=== PATIENT | male | born 1950 | race Caucasian/White ===

== ENCOUNTER → 2023-10-21 | Outpatient (CLI) | payer MEDICARE, OTHER, SELFPAY ==
--- OUTSIDE RECORDS SUMMARY | 2023-10-21 08:46 | XMS RPT_ITS | CCD ---
Author Name Unknown Address [address] [place] [address] Organization [facility] Care Team Providers Care Propagation Worker Name Role Phone DEVAN RINALDI Attending Unavailable DEVAN RINALDI Primary Care Unavailable DEVAN RINALDI Admitting Unavailable DEVAN RINALDI Admitting Unavailable DEVAN RINALDI Attending Unavailable DEVAN RINALDI Primary Care Unavailable Results Test Name Value Interpretation Reference Range Facil ity Encounters Encounter Date Encounter Type Care Provider Facility Start: 06-26-2023 End: 06-26-2023 ambulatory DEVAN RINALDI [facility] Start: 06-17-2023 ambulatory DEVAN RINALDI [facility] Procedures Date Procedure Procedure Detail Performing Clinician Start: 03-14-2022 PSA screening Summary Purpose Family History No Family History Records FoundNo Family History Records FoundNo Family History Records Found Advance Directives No Advanced Directives Records FoundNo Advanced Directives Records FoundNo Advanced Directives Records Found Additional Source Comments (unrecognized sect ion and content) No Status Records FoundNo Status Records FoundNo Status Records Found INFORMATION SOURCE (unrecogn ized section and content) DATE CREATED AUTHOR AUTHOR'S ORGANIZ ATION 03/15/2022 [facility] DATE CREATED AUTHOR AUTHOR'S ORGANIZ ATION 06/28/2023 [facility] FOR RECORDS PERTAINING TO PATIENTS WHO ARE OR HAVE BEEN ENROLLED IN A CHEMICAL DEPENDENCY/SUBSTANCEABUSE PROGRAM, SOME INFORMATION MAY BE OMITTED. This clinical summary was aggregated from multiple sources. Caution should be exercised in using it in the provision of clinical care. This summary normalizes information from multiple sources, and as a consequence, information in this document may materially change the coding, format and clinical context of patient data. In addition, data may be omitted in some cases. CLINICAL DECISIONS SHOULD BE BASED ON THE PRIMARY CLINICAL RECORDS. [facility]. provides no warranty or guarantee of the accuracy or completeness of information in this document.
[2023-10-21 10:11] LABS: Vitamin B12 1340 pg/mL (211-911)
[2023-10-21 10:36] LABS: AST(SGOT) 21 U/L (15-37); Alanine Aminotransfer ALT/SGPT 24 U/L (16-61); Albumin, Serum 3.9 g/dL (3.2-5.0); Alkaline Phosphatase 79 U/L (45-117); Anion Gap 1 (5-15); BUN 21 mg/dL (7-18); BUN/Creat Ratio 19.3 RATIO (10-20); Calcium,Total 9.2 mg/dL (8.5-10.1); Chloride 106 mmol/L (98-107); Cholesterol 181 mg/dL (200); Creatinine, Serum 1.09 mg/dL (0.70-1.30); EST Glomerular Filtration Rate 70 mL/min (>60); Est Glom Filt Rate - Afr Amer 85 mL/min (>60); Globulin 4.1 g/dL (2.2-4.2); Glucose 99 mg/dL (74-106); High Density Lipoprotein 29 mg/dL; Potassium 3.8 mmol/L (3.5-5.1); Sodium Level 136 mmol/L (136-145); Thyroid Stim Hormone (TSH) 6.17 uIU/mL (0.358-3.74); Triglycerides 139 mg/dL; Very Low Density Lipoprotein 28 mg/dL (5-40)
[2023-10-21 14:05] LABS: Free T3 2.6 pg/mL (2.18-3.98); T4 Free Direct 0.93 ng/dL (0.76-1.46)
== END | disposition home or self-care (01) ==
LOC: LAB 08:24
PROVIDERS: PCP Internal Medicine; Referring Provider Internal Medicine; Visit Provider Internal Medicine
DX: I10 Essential (primary) hypertension (principal); Z76.89 Persons encountering health services in other specified circumstances; Z13.220 Encounter for screening for lipoid disorders; E53.8 Deficiency of other specified B group vitamins; R06.09 Other forms of dyspnea; R94.31 Abnormal electrocardiogram [ECG] [EKG]; R53.83 Other fatigue; E55.9 Vitamin D deficiency, unspecified; R79.89 Other specified abnormal findings of blood chemistry
CPT/HCPCS: 36415; 80053; 80061; 82306; 82607; 84439; 84443; 84481

== ENCOUNTER → 2023-11-17 | Outpatient (CLI) | payer MEDICARE, OTHER, SELFPAY ==
--- NOTE | 2023-11-17 07:05 | ECHOD_ITS ---
Reason For Study: DONOHUE, UNCONTROLLED HTN Procedure This was a 2D Doppler, Color Flow transthoracic echocardiogram. Exam performed in department. Left Ventricle Normal LV size. Mild concentric left ventricular hypertrophy. The left ventricular ejection fraction is 55 %. Normal diastology for age. Right Ventricle Normal right ventricle. Atria The left and right atria are normal. Mitral Valve Mild (1+) mitral valve insufficiency. Tricuspid Valve Trivial tricuspid valve insufficiency. Normal pulmonary artery pressure. Aortic Valve Trisinus/trileaflet aortic valve. Pulmonic Valve The pulmonic valve is not well visualized. Trivial pulmonic valve insufficiency. Great Vessels Normal sized aortic root. Pericardium/Pleural No pericardial effusion. MMode/2D Measurements & Calculations LVIDd: 4.0 cm IVSd: 1.2 cm Ao root diam: 2.5 cm LVIDs: 2.6 cm LVPWd: 1.1 cm RVDd: 3.2 cm FS: 35.8 % LAV(MOD-bp): 50.7 ml LVAd ap4: 26.3 cm2 LVAd ap2: 24.3 cm2 LAV(MOD-bp) Indexed: 29.0 ml/m2 LVLd ap4: 6.7 cm LVLd ap2: 7.4 cm LAV(MOD-sp2): 49.9 ml EDV(MOD-sp4): 84.1 ml EDV(MOD-sp2): 69.0 ml LAV(MOD-sp4): 47.3 ml EDV(sp4-el): 88.2 ml EDV(sp2-el): 67.5 ml LVAs ap4: 16.9 cm2 LVAs ap2: 14.4 cm2 LVLs ap4: 6.0 cm LVLs ap2: 6.7 cm ESV(MOD-sp4): 40.2 ml ESV(MOD-sp2): 27.5 ml ESV(sp4-el): 40.9 ml ESV(sp2-el): 26.2 ml EF(MOD-sp4): 52.1 % EF(MOD-sp2): 60.1 % EF(sp4-el): 53.6 % SV(MOD-sp4): 43.9 ml SV(MOD-sp2): 41.5 ml SV(sp4-el): 47.2 ml LA dimension(2D): 3.3 cm LA A4 area: 17.1 cm2 RA A4 area: 11.4 cm2 TAPSE: 2.3 cm Time Measurements MV dec time: 0.29 sec Doppler Measurements & Calculations MV E max ric: 56.0 cm/sec Lat Peak E' Ric: 7.8 cm/sec Med Peak E' Ric: 6.3 cm/sec MV A max ric: 60.1 cm/sec E/E' lat: 7.2 E/E' med: 8.9 MV E/A: 0.93 MV V2 max: 80.3 cm/sec MV P1/2t max ric: 65.0 cm/sec Ao V2 max: 108.4 cm/sec MV max P.6 mmHg MV P1/2t: 88.4 msec Ao max P.7 mmHg MV V2 mean: 36.3 cm/sec MV dec slope: 215.4 cm/sec2 Ao V2 mean: 77.4 cm/sec MV mean P.65 mmHg Ao mean P.7 mmHg MV V2 VTI: 31.6 cm MVA(P1/2t): 2.5 cm2 Ao V2 VTI: 30.2 cm AV (velocity ratio): 0.80 LV V1 max: 95.2 cm/sec PA V2 max: 93.3 cm/sec TR max ric: 222.5 cm/sec LV V1 max P.6 mmHg PA V2 mean: 68.6 cm/sec TR max P.8 mmHg LV V1 mean P.8 mmHg LV V1 mean: 61.3 cm/sec LV V1 VTI: 24.1 cm ECHO/Echo Complete Interpretation Summary Mild concentric left ventricular hypertrophy. The left ventricular ejection fraction is 55 %. Mild (1+) mitral valve insufficiency. Ordering Physician: Sena Green Referring Physician: Sena Green Performed By: Federica No, HAWA, RVT
--- OUTSIDE RECORDS SUMMARY | 2023-11-17 07:12 | XMS RPT_ITS | CCD ---
Author Name Unknown Address [address] [place] [address] Organization [facility] Care Team Providers Care Engineering Lecturer Name Role Phone DEVAN RINALDI Attending Unavailable DEVAN RINALDI Primary Care Unavailable DEVAN RINALDI Admitting Unavailable DEVAN RINALDI Admitting Unavailable DEVAN RINALDI Attending Unavailable DEVAN RINALDI Primary Care Unavailable Results Test Name Value Interpretation Reference Range Facil ity Encounters Encounter Date Encounter Type Care Provider Facility Start: 06-26-2023 End: 06-26-2023 ambulatory DEVAN RINALDI [facility] Start: 06-17-2023 ambulatory DEVAN RINALDI [facility] Procedures Date Procedure Procedure Detail Performing Clinician [...] DATE CREATED AUTHOR AUTHOR'S ORGANIZ ATION 03/15/2022 [facility] DATE CREATED AUTHOR AUTHOR'S ORGANIZ ATION 06/28/2023 [facility] FOR RECORDS PERTAINING TO PATIENTS [...] BE BASED ON THE PRIMARY CLINICAL RECORDS. [facility]. provides no warranty or guarantee of the accuracy or completeness of information in this document.
--- NOTE | 2023-11-17 10:42 | STRESSREP ---
Stress Test Report Exercise myocardial perfusion stress test. 73-year-old male with a history of dyspnea on exertion and hypertension Stress protocol: Resting EKG demonstrates normal sinus rhythm with a rate of 49 bpm resting blood pressure is 134/78 mmHg. The patient exercised according to the regular [facility] protocol for a total duration of 6 minutes and 33 seconds attaining a maximum heart rate of 125 bpm which was 85% of maximum predicted heart rate; the maximum workload was 8.6 metabolic equivalents. At rest there were no ST or T wave changes noted to suggest ischemia and at peak exercise upsloping ST changes only were noted which did not meet the criteria for ischemia. No clinical angina was noted the test was terminated due to the target heart rate being achieved/fatigue. The peak blood pressure was 178/60 mmHg. Rate-pressure product was 20,006. Myocardial perfusion protocol. 11.3 mCi of technetium 99m sestamibi was injected at rest. The patient exercised according to regular [facility] protocol for total duration of 6 minutes and 33 seconds and at peak exercise 33.6 mCi of technetium 99m sestamibi was injected stress images were obtained stress and rest images were reconstructed in comparing the short axis vertical long and horizontal long axis. Gated images were also obtained. Perfusion SPECT analysis: Review of the stress images demonstrate normal uptake of tracer noted in all areas of the myocardium. The resting images similarly demonstrate normal uptake of tracer noted in all areas of the myocardium. No areas of reversibility are noted to suggest ischemia no previous infarct was noted. Gated SPECT analysis: The gated ejection fraction is 74%. Conclusion: Normal exercise myocardial perfusion stress test at a moderate workload Preserved ejection fraction.
== END | disposition home or self-care (01) ==
PROVIDERS: PCP Internal Medicine; Referring Provider Internal Medicine; Visit Provider Internal Medicine
DX: R06.09 Other forms of dyspnea (principal); I10 Essential (primary) hypertension
CPT/HCPCS: 78452; 93017; 93306; A9500; A4216

== ENCOUNTER → 2024-03-11 | Outpatient (CLI) | payer MEDICARE, OTHER, SELFPAY ==
[2024-03-11 13:32] LABS: Erythrocyte Sedimentation Rate 7 mm/hr (0-20)
[2024-03-13 13:07] LABS: Lyme Scn Total Ab w/Rflx Negative (Negative)
[2024-03-15 13:07] LABS: ANTINUCLEAR ANTIBODIES DIRECT Negative (Negative)
== END | disposition home or self-care (01) ==
LOC: LAB 12:59
PROVIDERS: PCP Internal Medicine; Referring Provider Internal Medicine; Visit Provider Internal Medicine
DX: R53.83 Other fatigue (principal)
CPT/HCPCS: 36415; 85652; 86038; 86140; 86225; 86235; 86618

== ENCOUNTER → 2024-05-05 | Outpatient (CLI) | payer MEDICARE, OTHER, SELFPAY ==
[2024-05-05 12:38] LABS: Hematocrit 47.7 % (40-54); Hemoglobin 15.9 g/dL (13.0-16.5); Mean Corp Hgb Conc 33.3 g/dL (32-36); Mean Corpuscular Hgb 29.3 pg (27.0-32.0); Mean Platelet Vol. 10.7 fl (6.2-12.0); Platelet Count 256 K/mm3 (150-450); RBC Distribution Width CV 13.3 % (11.6-14.6); RBC Distribution Width SD 42.8 fl (35.1-43.9); Red Blood Count 5.42 M/mm3 (4.6-6.2); White Blood Count 8.7 K/mm3 (4.4-11.0)
[2024-05-05 13:34] LABS: Estradiol 13.7 pg/mL; PSA,Total - Annual Screen 0.73 ng/mL (0.00-4.00)
== END | disposition home or self-care (01) ==
PROVIDERS: PCP Internal Medicine
DX: Z00.00 Encounter for general adult medical examination without abnormal findings (principal); E29.1 Testicular hypofunction; Z12.5 Encounter for screening for malignant neoplasm of prostate; Z13.0 Encounter for screening for diseases of the blood and blood-forming organs and certain disorders involving the immune mechanism; Z51.81 Encounter for therapeutic drug level monitoring; R53.83 Other fatigue
CPT/HCPCS: 36415; 82670; 84153; 84403; 85027; G0103

== ENCOUNTER → 2024-10-13 | Outpatient (CLI) | payer MEDICARE, OTHER, SELFPAY ==
[2024-10-13 10:13] LABS: Absolute Lymphocyte Count 1.37 X10^3/uL (0.83-4.51); Absolute Neutrophil Count 5.1 X10^3/uL (2.0-7.7); Basophil# 0.06 X10^3/uL; Basophil% 0.8 % (0-1); Eosinophil# 0.03 X10^3/uL; Eosinophils% 0.4 % (0-5); Hematocrit 48.2 % (40-54); Hemoglobin 16.2 g/dL (13.0-16.5); Lymphocyte # 1.37 X10^3/ul (0.83-4.51); Lymphocyte % 18.8 % (19-41); Mean Corp Hgb Conc 33.6 g/dL (32-36); Mean Corpuscular Hgb 29.6 pg (27.0-32.0); Mean Platelet Vol. 11.1 fl (6.2-12.0); Monocyte# 0.68 X10^3/uL; Monocyte% 9.3 % (0-10); NRBC Flagged by Analyzer 0 % (0-5); Neutrophil # 5.13 X10^3/uL (2.7-7.7); Neutrophil % 70.4 % (47-70); Platelet Count 257 K/mm3 (150-450); RBC Distribution Width CV 13.1 % (11.6-14.6); RBC Distribution Width SD 42.5 fl (35.1-43.9); Red Blood Count 5.48 M/mm3 (4.6-6.2); White Blood Count 7.3 K/mm3 (4.4-11.0)
[2024-10-13 10:51] LABS: Hemoglobin A1c 5.2 % (3.8-5.6)
[2024-10-13 10:52] LABS: Vitamin B12 > 2000 pg/mL (211-911); Vitamin D,25 Hydroxy 146.4 ng/mL
[2024-10-13 11:06] LABS: AST(SGOT) 20 U/L (15-37); Alanine Aminotransfer ALT/SGPT 19 U/L (16-61); Albumin, Serum 4.3 g/dL (3.2-5.0); Alkaline Phosphatase 93 U/L (45-117); Anion Gap 9 (5-15); BUN 16 mg/dL (7-18); Calcium,Total 9.6 mg/dL (8.5-10.1); Chloride 106 mmol/L (98-107); Cholesterol 172 mg/dL (200); EST Glomerular Filtration Rate 77 mL/min (>60); Est Glom Filt Rate - Afr Amer 94 mL/min (>60); Estradiol 31.1 pg/mL; Free T3 2.7 pg/mL (2.18-3.98); Globulin 4.2 g/dL (2.2-4.2); Glucose 94 mg/dL (74-106); High Density Lipoprotein 34 mg/dL; Luteinizing Hormone 4.8 mIU/mL; PSA,Total- Diagnostic 0.79 ng/mL (0.0-4.0); Potassium 3.5 mmol/L (3.5-5.1); Protein, Total 8.5 g/dL (6.4-8.2); Sodium Level 140 mmol/L (136-145); T4 Free Direct 0.95 ng/dL (0.76-1.46); Triglycerides 130 mg/dL; Very Low Density Lipoprotein 26 mg/dL (5-40)
[2024-10-16 09:07] LABS: PROLACTIN 15.9 ng/mL (3.6-25.2); Sex Hormone-binding Globulin 69.3 nmol/L (19.3-76.4); Testosterone, % Free 2.87 % (1.50-4.20); Testosterone, Free 16.42 ng/dL (5.00-21.00); Testosterone, Total 572 ng/dL (264-916); Thyroid Peroxidase AB 11 IU/mL (0-34)
== END | disposition home or self-care (01) ==
LOC: LAB 09:21
PROVIDERS: PCP Internal Medicine; Referring Provider Nurse Practitioner Family; Visit Provider Nurse Practitioner Family
DX: Z00.00 Encounter for general adult medical examination without abnormal findings (principal); E34.9 Endocrine disorder, unspecified
CPT/HCPCS: 36415; 80053; 80061; 82306; 82607; 82670; 83002; 83036; 84146; 84153; 84270; 84402; 84403; 84439; 84443; 84481; 85025; 86376

== ENCOUNTER → 2024-11-29 | Outpatient (CLI) | payer MEDICARE, OTHER, SELFPAY ==
[2024-11-29 12:39] LABS: Hematocrit 49.4 % (40-54); Hemoglobin 16.6 g/dL (13.0-16.5); Mean Corp Hgb Conc 33.6 g/dL (32-36); Mean Corpuscular Hgb 30.5 pg (27.0-32.0); Mean Corpuscular Volume 90.6 fL (80-94); Mean Platelet Vol. 11.5 fl (6.2-12.0); Platelet Count 263 K/mm3 (150-450); RBC Distribution Width CV 14.4 % (11.6-14.6); RBC Distribution Width SD 47.7 fl (35.1-43.9); Red Blood Count 5.45 M/mm3 (4.6-6.2); White Blood Count 8.9 K/mm3 (4.4-11.0)
[2024-11-29 13:34] LABS: Estradiol 56.4 pg/mL
== END | disposition home or self-care (01) ==
LOC: LAB 11:37
PROVIDERS: PCP Internal Medicine; Referring Provider Nurse Practitioner Family; Visit Provider Nurse Practitioner Family
DX: R53.83 Other fatigue (principal); E34.9 Endocrine disorder, unspecified
CPT/HCPCS: 36415; 82670; 84270; 84402; 84403; 85027

== ENCOUNTER → 2025-02-01 | Outpatient (CLI) | payer MEDICARE, OTHER, SELFPAY ==
[2025-02-01 08:58] LABS: Hemoglobin 16.1 g/dL (13.0-16.5); Mean Corp Hgb Conc 33.5 g/dL (32-36); Mean Corpuscular Hgb 30.2 pg (27.0-32.0); Mean Corpuscular Volume 90.1 fL (80-94); Mean Platelet Vol. 10.8 fl (6.2-12.0); Platelet Count 283 K/mm3 (150-450); RBC Distribution Width SD 46.3 fl (35.1-43.9); Red Blood Count 5.33 M/mm3 (4.6-6.2); White Blood Count 9.3 K/mm3 (4.4-11.0)
[2025-02-01 09:47] LABS: Estradiol 56.6 pg/mL; Free T3 2.9 pg/mL (2.18-3.98)
== END | disposition home or self-care (01) ==
LOC: LAB 08:06
PROVIDERS: PCP Internal Medicine; Referring Provider Nurse Practitioner Family; Visit Provider Nurse Practitioner Family
DX: E07.9 Disorder of thyroid, unspecified (principal); R53.83 Other fatigue; R00.2 Palpitations
CPT/HCPCS: 36415; 82670; 84270; 84402; 84403; 84439; 84443; 84481; 85027

== ENCOUNTER → 2025-04-04 | Outpatient (CLI) | payer MEDICARE, OTHER, SELFPAY ==
[2025-04-04 08:48] LABS: Hematocrit 45.8 % (40-54); Hemoglobin 15.4 g/dL (13.0-16.5); Mean Corp Hgb Conc 33.6 g/dL (32-36); Mean Corpuscular Volume 89.8 fL (80-94); Mean Platelet Vol. 11.1 fl (6.2-12.0); Platelet Count 251 K/mm3 (150-450); RBC Distribution Width CV 13.4 % (11.6-14.6); RBC Distribution Width SD 43.8 fl (35.1-43.9); Red Blood Count 5.10 M/mm3 (4.6-6.2); White Blood Count 10.0 K/mm3 (4.4-11.0)
[2025-04-04 09:59] LABS: Free T3 3.0 pg/mL (2.18-3.98)
[2025-04-08 11:08] LABS: Testosterone, % Free 2.45 % (1.50-4.20); Testosterone, Free 19.80 ng/dL (5.00-21.00)
== END | disposition home or self-care (01) ==
LOC: LAB 08:05
PROVIDERS: PCP Internal Medicine; Referring Provider Nurse Practitioner Family; Visit Provider Nurse Practitioner Family
DX: E34.9 Endocrine disorder, unspecified (principal); R53.83 Other fatigue
CPT/HCPCS: 36415; 82670; 84270; 84402; 84403; 84439; 84443; 84481; 85027